=== PATIENT | female | born 1960 | race Caucasian/White ===

== ENCOUNTER 2022-05-22 06:55 | Day surgery (SDC) | payer MEDICARE ==
[2022-05-21 15:00] LABS: COVID AG,FIA SOURCE NASAL SWAB
[2022-05-21 15:03] LABS: BASOPHILS % (AUTO) 0.3 % (0.0-2.0); HEMATOCRIT 41.8 % (36-46); HEMOGLOBIN 13.9 g/dL (12.0-16.0); LYMPHOCYTES # (AUTO) 1.2 K/uL (1.0-4.8); LYMPHOCYTES % (AUTO) 22.6 % (22.0-44.0); MEAN CORPUSCULAR HEMOGLOBIN 30.1 pg (26.0-34.0); MEAN CORPUSCULAR HGB CONC 33.3 G/dL (31.0-37.0); MEAN CORPUSCULAR VOLUME 90 fL (80-100); MONOCYTES # (AUTO) 0.5 K/uL (0.1-1.0); MONOCYTES % (AUTO) 9.2 % (2.0-9.0); NEUTROPHILS # (AUTO) 3.4 K/uL (1.8-7.7); NEUTROPHILS % (AUTO) 64.9 % (40.0-70.0); RED BLOOD CELL COUNT(AUTO) 4.62 MIL/uL (4.00-5.20); RED CELL DISTRIBUTION WIDTH 14.9 % (11.5-14.5)
[2022-05-21 15:07] LABS: CALCIUM, TOTAL 9.7 mg/dL (8.8-10.5); CREATININE 1.14 mg/dL (0.60-1.30)
[2022-05-21 15:14] LABS: BILIRUBIN,TOTAL 0.6 mg/dL (0.1-1.0); PROTHROMBIN TIME 11.1 SEC (9.4-11.6); TOTAL PROTEIN, SERUM 7.2 g/dL (6.4-8.2)
[2022-05-21 18:23] LABS: PLATELET COUNT (AUTO) 50 K/uL (150-450); PLATELET MORPHOLOGY COMMENT LARGE PLTS PRESENT
[~2022-05-22] VITALS: Ht 172.7 cm; Wt 69.9 kg
[~2022-05-22 06:55] MED LIST: ASPI-1450 PO; BACL10TA PO; CHOL25TA4 PO; HYDR10SY17 PO; LEVO25TA9 PO; MULT-1366 PO; OMEP20 PO; PROP10TA73 PO; ROSU20TA73 PO; SERT-162 PO; SODIUM CHLORIDE 0.9% 1,000 ML ONE; SPIR50TA27 PO; SUCR1TAB PO; TRAM-559 PO; URSO500T10 PO
[2022-05-22] MEDS ORDERED: SODIUM BICARBONATE 50 MEQ/50 ML VIAL ONE (07:18)
[2022-05-22] MEDS ORDERED: HEPARIN SODIUM 1000 UNITS/NS 1,000 ML ONE (07:18)
[2022-05-22] MEDS ORDERED: LIDOCAINE/PF 1% 30 ML VIAL ONE (07:18)
[2022-05-22] MEDS ORDERED: IOHEXOL 300 MG/ML 100 ML VIAL ONE (07:19)
[2022-05-22] MEDS ORDERED: NITROGLYCERIN 50 MG/D5% WATER 250 ML ONE (07:20)
[2022-05-22] MEDS ORDERED: PREG75 PO (07:21)
[2022-05-22] MEDS ORDERED: LOSA-381 PO (07:23)
[2022-05-22] MEDS ORDERED: TRAZ-257 PO (07:25)
[2022-05-22] MEDS ORDERED: IOHEXOL 300 MG/ML 50 ML VIAL ONE (07:26)
[2022-05-22] MEDS ORDERED: FURO-151 PO (07:30)
[2022-05-22] MEDS ORDERED: HYDR-4584 PO (07:38)
[2022-05-22] MEDS ORDERED: EMPA10TA3 PO (07:41)
[2022-05-22] MEDS ORDERED: HYDR200T38 PO (07:43)
[2022-05-22] MEDS ORDERED: ATOR10TA PO (07:48)
[2022-05-22] MEDS ORDERED: IPRAHFA IH (07:50)
[2022-05-22 07:56] LABS: GLUCOMETER DEV NAME(LOC) SDS.; GLUCOSE,POINT OF CARE 238 MG/DL (70-110)
[2022-05-22] MEDS ORDERED: SODIUM CHLORIDE 0.9% 1,000 ML IV ONE (08:00)
[2022-05-22] MEDS ORDERED: DIAZEPAM 5 MG TABLET ONE (09:26)
[2022-05-22] MEDS ORDERED: DiphenhydrAMINE HCL 50 MG CAPSULE ONE (09:27)
[2022-05-22] MEDS ORDERED: DiphenhydrAMINE HCL 25 MG/10 ML SOLUTION UDCUP PO ONE (09:30)
[2022-05-22] MEDS ORDERED: DIAZEPAM 10 MG TABLET PO ONE (09:30)
[2022-05-22] MEDS ORDERED: DIAZEPAM 5 MG TABLET PO ONE (09:45)
[2022-05-22 09:54] VITALS: BP 108/67
[2022-05-22] MEDS ORDERED: FentaNYL CITRATE PF 100 MCG/2 ML VIAL ONE (09:58)
[2022-05-22] MEDS ORDERED: MIDAZOLAM HCL 2 MG/2 ML VIAL ONE (09:58)
[2022-05-22] MEDS ORDERED: DiphenhydrAMINE HCL 50 MG CAPSULE PO ONE (10:00)
[2022-05-22] MEDS ORDERED: IOHEXOL 300 MG/ML 100 ML VIAL IARTER ONE (10:45)
[2022-05-22] MEDS ORDERED: LIDOCAINE 1% 30 ML/SOD BICARB 8.4% 4 ML SQ ONE (10:45)
[2022-05-22] MEDS ORDERED: HEPARIN SODIUM 1000 UNITS/NS 1,000 ML IARTER ONE (10:45)
[2022-05-22 11:19] VITALS: BP 172/76
[2022-05-22] MEDS ORDERED: SODIUM CHLORIDE 0.9% 500 ML IV ONE ×2 (11:30→12:10)
[2022-05-22] MEDS ORDERED: FURO20TA4 PO (11:43)
[2022-05-22] MEDS ORDERED: HYDR-4527 PO (11:43)
[2022-05-22] MEDS ORDERED: INSLAN SQ (11:43)
[2022-05-22] MEDS ORDERED: RIFAX550 PO (11:43)
[2022-05-22] MEDS ORDERED: ASPI-1444 PO (11:43)
[2022-05-22] MEDS ORDERED: PROP20TA18 PO (11:43)
[2022-06-02 12:52] LABS: PATHOLOGY REVIEW, DIFF YES
== END 2022-05-22 15:40 | disposition home or self-care (01) ==
LOC: CATHLAB 06:55
PROVIDERS: ATTEND Internal Medicine Cardiovascular Disease
DX: R94.39 Abnormal result of other cardiovascular function study (principal); I25.119 Atherosclerotic heart disease of native coronary artery with unspecified angina pectoris; E11.9 Type 2 diabetes mellitus without complications; E03.9 Hypothyroidism, unspecified; E78.5 Hyperlipidemia, unspecified; G47.30 Sleep apnea, unspecified; M32.9 Systemic lupus erythematosus, unspecified; F17.210 Nicotine dependence, cigarettes, uncomplicated; Z20.822 Contact with and (suspected) exposure to COVID-19; Z79.82 Long term (current) use of aspirin; Z79.890 Hormone replacement therapy; Z79.891 Long term (current) use of opiate analgesic; Z79.899 Other long term (current) drug therapy; Z86.73 Personal history of transient ischemic attack (TIA), and cerebral infarction without residual deficits; Z88.0 Allergy status to penicillin; Z98.890 Other specified postprocedural states
CPT/HCPCS: 80053; 85025; 85610; 85730; 36415; 93005; 87426; 93460; 82962; C9803; C1760; J1644; J3490 ×3; J7030; J7040; Q9967 ×2; J2250; J3010